=== PATIENT | female | born 1945 | race Caucasian/White ===

== ENCOUNTER → 2021-09-05 | Outpatient (CLI) | payer BC ==
[~2021-09-05] MED LIST: AMBIEN 10 MG TA10 MG PO; ARIXTRA SC; ASPIRIN325 PO; CARVEDILOL3.125 MG PO; COLACE100 MG PO; COZAAR 50 MG TA50 M2 PO; CRANBERRY400 MG PO; DITROPAN XL10 M1 PO; ENTRESTO 49 MG1 EACH PO; FOSAMAX 70 MG T70 M1 PO; HYDROCODONE-AP1 EA10 PO; K-DUR10 MEQ PO; KEFLEX500 MG PO; LASIX 40 MG TAB40 MG PO; MOBIC15 MG PO; NEURONTIN 300300 M1 PO; OXYIR5 MG PO; PERCOCET 5-3251 EACH PO; PULMICORT FLE180 MCG INH; PULMICORT FLE180 MCG PO; SKELAXIN 800 M800 M1 PO; SLOW RELEASE IRON PO; SPIRONOLACTONE25 M1 PO; STIOLTO RESPIMAT4 GM INH; THERAGRAN-M PR1 EAC1 PO; UNISOM50 MG PO; ZYRTEC10 M2 PO; ZYRTEC10 M5 PO
== END ==
LOC: SJCVC 09:29
PROVIDERS: ATTEND Internal Medicine Cardiovascular Disease
DX: R94.31 Abnormal electrocardiogram [ECG] [EKG] (principal); I25.10 Atherosclerotic heart disease of native coronary artery without angina pectoris; I42.0 Dilated cardiomyopathy; I44.7 Left bundle-branch block, unspecified; I50.22 Chronic systolic (congestive) heart failure; J44.9 Chronic obstructive pulmonary disease, unspecified; I65.29 Occlusion and stenosis of unspecified carotid artery; I34.0 Nonrheumatic mitral (valve) insufficiency; M81.0 Age-related osteoporosis without current pathological fracture; Z88.0 Allergy status to penicillin; Z88.1 Allergy status to other antibiotic agents; Z98.890 Other specified postprocedural states; Z79.899 Other long term (current) drug therapy